=== PATIENT | male | born 1990 | race Two or more races ===

== ENCOUNTER → 2019-11-11 | Outpatient (CLI) | payer BC ==
--- NOTE | 2019-11-11 16:28 | RAD ---
INDICATION: Testicular pain. COMPARISON: None. TECHNIQUE: Grayscale, color and spectral doppler ultrasound images obtained of the scrotum. FINDINGS: Right Testicle: 51 x 29 x 27 mm. Vascular flow is identified. Left Testicle: 47 x 35 x 26 mm. Vascular flow is identified. 29 x 19 mm cystic lesion at left epididymis with low level internal echoes which could be from debris. Dilatation of the pampiniform plexus on the left. Trace hydrocele IMPRESSION: * Left epididymal cyst or spermatocele at the region of the lump. No worrisome intratesticular mass. * Left-sided varicocele. Electronically signed by: Angus Hauser MD (11/11/2019 4:25 PM) [id number]
== END | disposition home or self-care (01) ==
LOC: US 15:30
PROVIDERS: ATTEND Family Medicine
DX: I86.1 Scrotal varices (principal)
CPT/HCPCS: 76870